=== PATIENT | female | born 1945 | race Caucasian/White ===

== ENCOUNTER 2016-07-02 11:42 | Emergency (ER) | payer OTHER ==
--- NOTE | 2016-07-02 12:06 | CPEKG ---
Heart Rate: 72 RR Interval: 833 P-R Interval: 152 QRSD Interval: 84 QT Interval: 372 QTC Interval: 408 P [place]: 18 QRS [place]: 23 T Wave [place]: 36 EKG Severity - ABNORMAL ECG - EKG Impression: SINUS RHYTHM EKG Impression: CONSIDER LEFT VENTRICULAR HYPERTROPHY Electronically Signed By: Sukhjinder Tyson 04-Jul-2016 08:59:22
--- NOTE | 2016-07-02 12:18 | EDPHY ---
HPI/HX/ROS/PE/MDM Narrative: CHIEF COMPLAINT: Bilateral leg and genital numbness HPI: The patient is a 71 y/o female complaining of numbness in both legs and genitals onset 3.5 weeks ago. She reports her symptoms came on suddenly and appeared first in each foot, progressing up her legs. She was recently put on a 3rd antihypertensive medication just prior to symptom onset. She was evaluated by her PCP for these symptoms, and he performed a lumbar MRI. The MRI showed mild lumbar stenosis, but no obvious cause of her symptoms according to the patient. She denies associated back pain, recent trauma or falls, fever, or paresthesia extending above her waist. She reports difficulty with ambulation and exhaustion. REVIEW OF SYSTEMS: Aside from elements discussed in the HPI, a comprehensive 10-point review of systems was reviewed and is negative. 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 Case PHYSICAL EXAM: General:Patient is alert, in no acute distress. ENT:Eyes are normal to inspection. ENT inspection normal. Neck: Normal inspection. Full range of motion. Respiratory:No respiratory distress. Breath sounds normal bilaterally. Cardiovascular: Regular rate and rhythm. Strong peripheral pulses. Normal cap refill. Abdomen:The abdomen is nontender to palpation. There are no peritoneal signs. There are normal bowel sounds. Back: Normal to inspection. No tenderness to palpation. Skin: Normal color. No rash. Warm and dry. Extremities: Normal appearance. Full range of motion. Neuro: Oriented x3. Normal motor function. Normal sensory function including LTS. 5/5 lower extremity strength DF/PF/hip flexion and extension. Normal gait. ED Course: This is a 71 y/o female who presents with a 3.5 week history of bilateral leg and genital numbness that has already been evaluated by her PCP. Per the patient , an MRI showed mild lumbar stenosis, but nothing to explain the severity of her symptoms. She denies associated pain and her neuro exam is normal. No evidence of incontinence. Plan for basic lab work and EKG at this time. The 12 lead EKG was interpreted by myself. EKG shows sinus rhythm rate 72. See hard copy and/or "tracemaster" electronic copy for interpretation. 1305: Reevaluated patient and discussed work up thus far. Her exam is unchanged. She is requesting a head CT, which I will order for her. Study: CT of the Head Indication: paresthesias Results: CT scan of the head was obtained. The results of the study are The study was read by the radiologist, . I viewed the images myself on the PACS system. MDM: This patient presents with subjective decrease in LTS in both legs up to level of waist. Her neurologic exam is completely normal today. She tells me that she recently underwent an MRI of her lumbar spine which she reports was largely negative. I have no access to this data to confirm. We performed a number of tests including CTH and extensive lab work which are thankfully all normal. I see no sign of cauda equina syndrome, CVA, brain mass, hyponatremia or infectious process. The patient is interested in being tested for environmental toxins and poisons which may be causing her symptoms. I explained that those etiologies are unlikely and not routinely tested in the ED. The patient already has follow-up with NSG in place and I have also given her a neurology referral. Given no acute changes in her symptoms and no abnormal exam findings, I do not think emergent repeat MRI is necessary. - Data Points Laboratory Results: Laboratory Results 07/02/16 12:29 07/02/16 12:29 07/02/16 07/02/16 12:29 12:29 WBC 7.65 10^3/uL 10^3/uL (3.80-9.50) RBC 4.86 10^6/uL 10^6/uL (4.18-5.33) Hgb 14.4 g/dL g/dL (12.6-16.3) Hct 42.8 % % (38.0-47.0) MCV 88.1 fL fL (81.5-99.8) MCH 29.6 pg pg (27.9-34.1) MCHC 33.6 g/dL g/dL (32.4-36.7) RDW 14.8 % % (11.5-15.2) Plt Count 258 10^3/uL 10^3/uL (150-400) MPV 11.0 fL fL (8.7-11.7) Neut % (Auto) 49.1 % % (39.3-74.2) Lymph % (Auto) 36.2 % % (15.0-45.0) [place] % (Auto) 12.5 % % (4.5-13.0) Eos % (Auto) 0.8 % % (0.6-7.6) Baso % (Auto) 0.5 % % (0.3-1.7) Nucleat RBC Rel Count 0.0 % % (0.0-0.2) Absolute Neuts (auto) 3.75 10^3/uL 10^3/uL (1.70-6.50) Absolute Lymphs (auto) 2.77 10^3/uL 10^3/uL (1.00-3.00) Absolute Monos (auto) 0.96 10^3/uL H 10^3/uL (0.30-0.80) Absolute Eos (auto) 0.06 10^3/uL 10^3/uL (0.03-0.40) Absolute Basos (auto) 0.04 10^3/uL 10^3/uL (0.02-0.10) Absolute Nucleated RBC 0.00 10^3/uL 10^3/uL (0-0.01) Immature Gran % 0.9 % % (0.0-1.1) Immature Gran # 0.07 10^3/uL 10^3/uL (0.00-0.10) Sodium 134 mEq/L mEq/L (134-144) Potassium 4.2 mEq/L mEq/L (3.5-5.2) Chloride 101 mEq/L mEq/L (97-110) Carbon Dioxide 22 mEq/l mEq/l (22-31) Anion Gap 11 mEq/L mEq/L (8-16) BUN 20 mg/dL mg/dL (7-23) Creatinine 0.7 mg/dL mg/dL (0.6-1.0) Estimated GFR > 60 Glucose 95 mg/dL mg/dL (70-100) Calcium 9.8 mg/dL mg/dL (8.5-10.4) Total Bilirubin 0.8 mg/dL mg/dL (0.1-1.4) Conjugated Bilirubin 0.3 mg/dL mg/dL (0.0-0.5) Unconjugated Bilirubin 0.5 mg/dL mg/dL (0.0-1.1) AST 24 IU/L IU/L (14-46) ALT 38 IU/L IU/L (9-52) Alkaline Phosphatase 60 IU/L IU/L (38-126) Troponin I < 0.012 ng/mL ng/mL (0-0.034) Total Protein 8.1 g/dL g/dL (6.3-8.2) Albumin 4.2 g/dL g/dL (3.5-5.0) General Time Seen by Provider: 07/02/16 12:00 Initial Vital Signs: Initial Vital Signs Temperature (C) 36.5 C 07/02/16 11:52 Heart Rate 84 07/02/16 11:52 Respiratory Rate 20 07/02/16 11:52 Blood Pressure 144/86 H 07/02/16 11:52 O2 Sat (%) 94 07/02/16 11:52 O2 Delivery Mode Room Air Allergies/Adverse Reactions: No Known Allergies Allergy (Unverified 07/02/16 11:51) Home Medications: Medication Instructions Recorded Amlodipine Besylate 07/02/16 Naturethroid 07/02/16 Departure - Departure Disposition: Home, Routine, Self-Care Clinical Impression: Paresthesia Condition: Good Instructions: Paresthesia (ED) Referrals: Napoleon Rome MD [Medical Doctor] - As per Instructions Report Scribed for: Rocky Ambrose Report Scribed by: Ling Gutiérrez Date of Report: 07/02/16 Time of Report: 12:18 Physician Review and Approval Statement: Portions of this note were transcribed by an ED scribe. I personally performed the history, physical exam, and medical decision making; and confirm the accuracy of the information in the transcribed note.
[2016-07-02 12:43] LABS: % IMMATURE GRANULYOCYTES 0.9 % (0.0-1.1); ABSOLUTE IMMATURE GRANULOCYTES 0.07 10^3/uL (0.00-0.10); ADD DIFF? NO; ADD MORPH? NO; ADD SCAN? NO; ATYPICAL LYMPHOCYTE FLAG 20 (0-99); FRAGMENT RBC FLAG 0 (0-99); HEMATOCRIT 42.8 % (38.0-47.0); HEMOGLOBIN 14.4 g/dL (12.6-16.3); LEFT SHIFT FLG 0 (0-99); LIPEMIA HEMOLYSIS FLAG 80 (0-99); MEAN CELL HEMOGLOBIN 29.6 pg (27.9-34.1); MEAN CELL HEMOGLOBIN CONCENTR. 33.6 g/dL (32.4-36.7); MEAN CELL VOLUME 88.1 fL (81.5-99.8); PLATELET CLUMPS FLAG 0 (0-99); PLATELET COUNT 258 10^3/uL (150-400); RED BLOOD CELL COUNT 4.86 10^6/uL (4.18-5.33); RED CELL DISTRIBUTION WIDTH 14.8 % (11.5-15.2)
[2016-07-02 12:55] LABS: ALANINE AMINOTRANSFERASE 38 IU/L (9-52); ALBUMIN 4.2 g/dL (3.5-5.0); ALKALINE PHOSPHATASE 60 IU/L (38-126); ANION GAP 11 mEq/L (8-16); ASPARTATE AMINOTRANSFERASE 24 IU/L (14-46); BILIRUBIN,TOTAL 0.8 mg/dL (0.1-1.4); BILIRUBIN-CONJUGATED 0.3 mg/dL (0.0-0.5); BILIRUBIN-UNCONJUGATED 0.5 mg/dL (0.0-1.1); CALCIUM 9.8 mg/dL (8.5-10.4); CARBON DIOXIDE 22 mEq/l (22-31); CHLORIDE 101 mEq/L (97-110); CREATININE 0.7 mg/dL (0.6-1.0); GLOMERULAR FILTRATION RATE > 60; GLUCOSE 95 mg/dL (70-100); POTASSIUM 4.2 mEq/L (3.5-5.2); SODIUM 134 mEq/L (134-144); TOTAL PROTEIN 8.1 g/dL (6.3-8.2)
[2016-07-02 13:06] LABS: TROPONIN I < 0.012 ng/mL (0-0.034)
[2016-07-02 14:55] VITALS: BP 156/105; PULSE 75; RESP 16; TEMP 98.6; O2SAT 96
== END 2016-07-02 14:53 | disposition home or self-care (01) ==
DX: R20.2 Paresthesia of skin (principal); I10 Essential (primary) hypertension

== ENCOUNTER 2016-10-18 08:36 | Emergency (ER) | payer OTHER ==
[2016-10-18 08:44] VITALS: PULSE 72; RESP 16; TEMP 97.7
[2016-10-18 09:01] LABS: COLOR YELLOW; LEUKOCYTE ESTERASE,URINE NEGATIVE (NEGATIVE); NITRITE,URINE NEGATIVE (NEGATIVE)
--- NOTE | 2016-10-18 09:58 | EDPHY ---
H & P Time Seen by Provider: 10/18/16 09:57 HPI/ROS: Chief complaint. Can't empty bladder HPI. 71-year-old female has been having trouble emptying her bladder completely for the past 2 months. Initially several months ago she had a markedly elevated blood pressure. She has been having her medications adjusted on a 3rd blood pressure medication in attempt to control her blood pressure. 2- 3 months ago she developed paresthesias to her legs. Apparently surgery was recommended she does have lumbar stenosis and apparent spondylolisthesis. However she has been during neuromuscular therapy and her paresthesias have nearly completely resolved. However with this she has had continuing trouble emptying her bladder. She also feels that her orgasm is a are not as strong as the use to be. No back pain. No leg weakness. ROS Constitutional. no fever/chills, no weakness Eyes. no problems with vision ENT. no sore throat, no nasal drainage Cardiovascular. no chest pain Respiratory. no shortness of breath, no cough Abdominal. no abdominal pain, no nausea/vomiting, no diarrhea . Feels like not emptying bladder completely MS. no calf pain/swelling, no neck/back pain, no joint pain Skin. no rash Lymph. no swollen glands Neuro. no headache, no dizziness, no difficulty walking or with speech Past Medical/Surgical History: Past medical history significant for Katy's disease, splenectomy, lumbar stenosis Social History: Single, nonsmoker, no alcohol Smoking Status: Former smoker Physical Exam: General Appearance: Alert pleasant well-developed female mild distress vital signs stable Eyes: Pupils equal and round no pallor or injection. ENT, Mouth: Mucous membranes are moist. Respiratory: There are no retractions, lungs are clear to auscultation. Cardiovascular: Regular rate and rhythm. Gastrointestinal: Abdomen is soft and nontender, no masses, bowel sounds normal. Neurological: Awake and alert, sensory and motor exams grossly normal. Deep tendon reflexes are symmetrical. Great toe strength is normal. Her gait is normal. Her sensation is normal. Skin: Warm and dry, no rashes. Musculoskeletal: Neck is supple nontender. Extremities symmetrical, full range of motion. Psychiatric: Patient is oriented X 3, there is no agitation. Constitutional: Initial Vital Signs Temperature (C) 36.5 C 10/18/16 08:41 Heart Rate 72 10/18/16 08:41 Respiratory Rate 16 10/18/16 08:41 Blood Pressure 140/80 H 10/18/16 08:41 O2 Sat (%) 96 10/18/16 08:41 O2 Delivery Mode Room Air Allergies/Adverse Reactions: No Known Allergies Allergy (Verified 07/12/16 14:02) Home Medications: Medication Instructions Recorded Naturethroid 81.25 mg PO DAILY 07/07/16 Naturethroid 32.5 mg PO DAILY 07/07/16 amLODIPine BESYLATE [Norvasc 10 mg 10 mg PO DAILY 07/07/16 (*)] Medical Decision Making Procedures: Prevoid bladder scan shows 276 mL in her bladder. Postvoid bladder scan shows 0 mL in her bladder ED Course/Re-evaluation: On re-evaluation patient is stable. She and I discussed laboratory evaluation as well as the imaging study results. We discussed treatment plan including criteria for return importance of follow-up further evaluation. She expresses understanding and agreement Differential Diagnosis: I considered cauda equina syndrome, herniated disc, urinary tract infection - Data Points Laboratory Results: 10/18/16 08:40 Urine Color YELLOW Urine Appearance HAZY Urine pH 6.0 (5.0-7.5) Ur Specific [place] 1.016 (1.002-1.030) Urine Protein NEGATIVE (NEGATIVE) Urine Ketones NEGATIVE (NEGATIVE) Urine Blood NEGATIVE (NEGATIVE) Urine Nitrate NEGATIVE (NEGATIVE) Urine Bilirubin NEGATIVE (NEGATIVE) Urine Urobilinogen NEGATIVE EU EU (0.2-1.0) Ur Leukocyte Esterase NEGATIVE (NEGATIVE) Urine Glucose NEGATIVE (NEGATIVE) Departure - Departure Disposition: Home, Routine, Self-Care Clinical Impression: Acute retention of urine Condition: Good Instructions: Acute Urinary Retention in Women (ED) Additional Instructions: Drink plenty of fluids to keep your urine clear. Try to empty your bladder completely. Return for leg weakness, worsening paresthesias or difficulty emptying bladder. For continued symptoms further evaluation and discussion with Dr. Veliz. Referrals: YANDY JOE [Primary Care Provider] - As per Instructions Dennis Veliz MD [Medical Doctor] - As per Instructions
[2016-10-18 10:55] VITALS: BP 161/96; O2SAT 95
== END 2016-10-18 10:55 | disposition home or self-care (01) ==
DX: R33.9 Retention of urine, unspecified (principal); Z87.891 Personal history of nicotine dependence

== ENCOUNTER 2016-11-11 15:30 | Emergency (ER) | payer OTHER ==
[2016-11-11 15:40] VITALS: TEMP 98.1
--- NOTE | 2016-11-11 15:42 | EDPHY ---
H & P Stated Complaint: BP is "all over the place" Time Seen by Provider: 11/11/16 15:41 - Personal History Current Tetanus Diphtheria and Acellular Pertussis (TDAP): Yes - Medical/Surgical History Hx Asthma: No Hx Chronic Respiratory Disease: No Hx Diabetes: No Hx Cardiac Disease: No Hx Renal Disease: No Hx Cirrhosis: No Hx Alcoholism: No Hx HIV/AIDS: No Hx Splenectomy or Spleen Trauma: No Other PMH: hashimotos/spleenectomy. HTN - Social History Smoking Status: Former smoker Constitutional: Initial Vital Signs Temperature (C) 36.7 C 11/11/16 15:36 Heart Rate 69 11/11/16 15:36 Respiratory Rate 18 11/11/16 15:36 Blood Pressure 147/94 H 11/11/16 15:36 O2 Sat (%) 97 11/11/16 15:36 O2 Delivery Mode Room Air Allergies/Adverse Reactions: No Known Allergies Allergy (Verified 11/11/16 15:34) Home Medications: Medication Instructions Recorded Naturethroid 81.25 mg PO DAILY 07/07/16 Naturethroid 32.5 mg PO DAILY 07/07/16 amLODIPine BESYLATE [Norvasc 10 mg 10 mg PO DAILY 07/07/16 (*)] Metoprolol Succinate 100 mg PO 11/11/16 Nebivolol HCl [Bystolic 5 mg (*)] 5 mg PO DAILY 11/11/16 Medical Decision Making ED Course/Re-evaluation: CHIEF COMPLAINT: Hypertension HISTORY OF PRESENT ILLNESS: The patient is a 71 y/o female complaining of intermittent hypertension for the last several months causing associated exhaustion. She is prescribed three different antihypertensives including Bystolic, metoprolol, and Norvasc, but reports she is not complaint because she does not want to be on medication. Her exhaustion, chest tightness, and anxiety improves when she uses her amlodipine and metoprolol. She was evaluated by her PCP 2 days ago and had labs drawn at that time; Dr. Case recommended using her medications consistently to manage her symptoms. Her BP at home today was 160/ 80. REVIEW OF SYSTEMS: A 10 point review of systems was performed and is negative with the exception of the elements mentioned in the history of present illness. PHYSICAL EXAM: HR, BP, O2 Sat, RR. Temp noted General Appearance: Alert, well hydrated, appropriate, and non-toxic appearing. Head: Atraumatic without scalp tenderness or obvious injury Eyes: Pupils equal, round, reactive to light and accommodation, EOMI, no trauma , no injection. Nose: Atraumatic, no rhinorrhea, clear. Throat: Mucus membranes moist. Neck: Supple, nontender, no lymphadenopathy. Respiratory: No retractions, no distress, no wheezes, and no accessory muscle use. Lungs are clear to auscultation bilaterally. Cardiovascular: Regular rate and rhythm, no murmurs, rubs, or gallops. Good capillary refill all extremities. Gastrointestinal: Abdomen is soft, nontender, non-distended, no masses, no rebound, no guarding, no peritoneal signs. Musculoskeletal: Normal active ROM of all extremities, atraumatic. Neurological: Alert, appropriate, and interactive. Nonfocal neuro exam. Skin: No rashes, good turgor, no nodules on palpation. Past medical history: Hypertension, Katy's Past surgical history: noncontributory Family history: noncontributory Social history: Patient arrived at hospital alone with no family members present. PCP Dr. Case DIAGNOSTICS/PROCEDURES/CRITICAL CARE TIME: The 12 lead EKG was interpreted by myself. Sinus rhythm rate 64. See hard copy and/or "tracemaster" electronic copy for interpretation. DIFFERENTIAL DIAGNOSIS: The differential diagnosis for the patient's symptoms included but was not limited to poorly controlled hypertension, medication non- compliance, anxiety, anxiety about health, myocardial ischemia, pulmonary embolus, chest wall pain, pleural inflammation, and pulmonary infectious causes. MEDICAL DECISION MAKING: The patient is a 71 y/o female who presents with anxiety related to poorly controlled hypertension. She is noncompliant with her antihypertensives and describes worsening symptoms when she is not using her medications. Her exam is unremarkable. She has no evidence of hypertensive urgency or emergency and has been worked up extensively for her symptoms by her PCP. Her BP has not been significantly elevated while here and her EKG is normal. Her ISTAT is WNL. I've recommended taking her amlodipine and metoprolol as prescribed and following up her her PCP as needed. Return precautions given. She agrees with plan for treatment and follow up. - Data Points Laboratory Results: 11/11/16 16:06 POC Hgb 15.3 gm/dL gm/dL (12.6-16.3) POC Hct 45 % % (38-47) POC Sodium 141 mEq/L mEq/L (134-144) POC Potassium 3.8 mEq/L mEq/L (3.3-5.0) POC Chloride 102 mEq/L mEq/L (97-110) POC BUN 14 mg/dL mg/dL (7-23) POC Creatinine 0.7 mg/dL mg/dL (0.6-1.0) POC Glucose 106 mg/dL H mg/dL (70-100) Point of Care Test Results: 11/11/16 16:06 POC Sodium 141 POC Potassium 3.8 POC Chloride 102 POC BUN 14 POC Creatinine 0.7 POC Glucose 106 H Departure - Departure Disposition: Home, Routine, Self-Care Clinical Impression: Exhaustion Hypertension Qualifiers: Hypertension type: other secondary hypertension Qualified Code(s): I15.8 - Other secondary hypertension Condition: Good Instructions: Metoprolol (By mouth), Amlodipine (By mouth), Hypertension (ED) Additional Instructions: 1. Take 10mg of Amlodipine every morning as prescribed. 2. Take 100mg of Metoprolol every evening as prescribed. 3. Follow up with your primary care provider for unimproved symptoms over the next 2-3 days. 4. Return to the ER for severe chest pain, severe headache, shortness of breath , or other worsening of condition. Referrals: IVETTE CASE [Primary Care Provider] - As per Instructions Report Scribed for: Geremias Castillo Report Scribed by: Ling Gutiérrez Date of Report: 11/11/16 Time of Report: 23:23
--- NOTE | 2016-11-11 16:08 | CPEKG ---
Heart Rate: 64 RR Interval: 938 P-R Interval: 212 QRSD Interval: 72 QT Interval: 416 QTC Interval: 430 P [place]: 42 QRS [place]: 20 T Wave [place]: 24 EKG Severity - NORMAL ECG - EKG Impression: SINUS RHYTHM Electronically Signed By: Devan Steve 11-Nov-2016 16:21:08
[2016-11-11 16:47] VITALS: BP 146/79; PULSE 63; RESP 16; O2SAT 95
== END 2016-11-11 16:46 | disposition home or self-care (01) ==
DX: I10 Essential (primary) hypertension (principal); R53.83 Other fatigue; Z87.891 Personal history of nicotine dependence
CPT/HCPCS: 82947-QW

== ENCOUNTER → 2017-08-07 | Outpatient (CLI) | payer OTHER | LOC: GIMAGING 13:30 | PROVIDERS: ATTEND Family Medicine | DX: M25.511 Pain in right shoulder (principal) | CPT/HCPCS: 73030-PO ==

== ENCOUNTER → 2018-05-29 | Outpatient (CLI) | payer OTHER ==
[~2018-05-29] MED LIST: GADOBUTROL 10 ML VIAL IVP ONE
== END ==
LOC: FIMAGING 15:04
PROVIDERS: ATTEND Family Medicine
DX: R59.0 Localized enlarged lymph nodes (principal); Z85.820 Personal history of malignant melanoma of skin
CPT/HCPCS: 71552; A9585; 82565-PO

== ENCOUNTER → 2018-06-04 | Outpatient (CLI) | payer OTHER ==
[~2018-06-04] MED LIST changes: -GADOBUTROL 10 ML VIAL IVP ONE; +LIDOCAINE 1% 300 MG/30 ML SDV ONE
== END ==
LOC: FIMAGING 08:02
PROVIDERS: ATTEND Family Medicine
PROC: 07B63ZX Excision of Left Axillary Lymphatic, Percutaneous Approach, Diagnostic (ICD-10-PCS; principal; 2018-06-04)
DX: C77.3 Secondary and unspecified malignant neoplasm of axilla and upper limb lymph nodes (principal); C43.62 Malignant melanoma of left upper limb, including shoulder; R20.0 Anesthesia of skin
CPT/HCPCS: 88184-90; 88185-91